=== PATIENT | female | born 1945 | race African-American/Black ===

== ENCOUNTER 2016-08-11 07:09 | Inpatient (IN) | payer MEDICARE, OTHER ==
[2016-08-03 10:13] LABS: HEMATOCRIT 38.1 % (36.0-48.0); HEMOGLOBIN 12.6 g/dL (12.0-16.0)
[2016-08-03 11:20] LABS: CALCIUM, SERUM 9.4 MG/DL (8.5-10.4); CHLORIDE, SERUM 97 MMOL/L (96-112); CO2 (CARBON DIOXIDE) 33 MMOL/L (24-34); SODIUM, SERUM 140 MMOL/L (135-148)
[2016-08-03 11:25] LABS: BUN (BLOOD UREA NITROGEN) 25 MG/DL (6-23); CREATININE 1.57 MG/DL (0.55-1.02); GFR AFRICAN AMERICAN 39 ML/MIN (>=60); GFR NON AFRICAN AMERICAN 33 ML/MIN (>=60); GLUCOSE, SERUM 103 MG/DL (60-99)
--- NOTE | ~2016-08-11 | OP ---
Record Of Operation [facility] [address] [place]. [address] NAME: LUCIA PERRY : 49 STATUS : DIS IN PAT#: [id number] AGE: 71 ADM/REG DATE : 08/11/16 MR#: [id number] REPORT SERV DATE: 08/16/16 DICTATED BY: MARINA LORENZO II DATE: 08/16/16 REPORT STATUS : Draft TRANSCRIBED BY: MODL DATE: 08/16/16 DATE OF PROCEDURE: 08/11/2016 PREOPERATIVE DIAGNOSES: 1. Severe spinal stenosis L3-4, L4-5 with associated spondylolisthesis. 2. Neurogenic claudication with radicular component. 3. Lumbar instability. 4. Stenosis, multilevel. POSTOPERATIVE DIAGNOSES: 1. Severe spinal stenosis L3-4, L4-5 with associated spondylolisthesis. 2. Neurogenic claudication with radicular component. 3. Lumbar instability. 4. L4-L5 autofusion. PROCEDURE: 1. Lumbar laminectomy and facetectomy for decompression of the L2, L3, and L4 nerve roots. 2. Posterolateral arthrodesis L2-3, L3-4. 3. Posterior segmental instrumentation, L2-3, L3-4. 4. Use of local autograft, allograft substitute, and bone morphogenic protein. 5. Use of the microscope and stereotactic spinal imaging. SURGEON: Marina Lorenzo M.D. FLUIDS: 2 L Lactated Ringer's. ESTIMATED BLOOD LOSS: 150 mL. DRAINS: None. COMPLICATIONS: None. ANTIBIOTIC: Preoperatively. IMPLANT: Alphatec. PREOPERATIVE HISTORY: This is a very friendly 71-year-old female, who I have known for many years. She unfortunately has re-presented with a severe worsening of her lumbar symptoms with severe radiation into the buttocks and legs. We discussed the pros and cons of surgery. We discussed the fact that she was at increased risk for infection or wound complications given her obesity. We discussed the other risks, which include, but are not limited to, CSF leak, footdrop, adjacent segment degeneration, hardware failure, and a small chance of heart attack, stroke, or . DESCRIPTION OF PROCEDURE: After informed consent was obtained, the patient was brought to the operating room at her request and general anesthesia achieved. She was placed in the Record Of Operation [facility] [address] [place]. [address] NAME: LUCIA PERRY : 47 STATUS : DIS IN PAT#: [id number] AGE: 71 ADM/REG DATE : 08/11/16 MR#: [id number] REPORT SERV DATE: 08/16/16 DICTATED BY: MARINA LORENZO II DATE: 08/16/16 REPORT STATUS : Draft TRANSCRIBED BY: MODWicho DATE: 08/16/16 prone position. The back was prepped and draped in a sterile fashion. The stereotactic spinal pin was placed into the iliac crest followed by completion of the intraoperative CT scan. The stereotactic guidance was then used throughout the remainder of the case. Next, the incision was made and the minimally invasive approach performed. We then placed the quadrant retractor into the operative level of L2-3 and L3-4. Interestingly, the L4-5 level appeared to be well fused at the facet level and autofusion. I then examined this under microscopic visualization, and did not identify any obvious macro-motion at the facet level. At this point, the high-speed bur was then used to thin the lamina and the spinal laminar junction. The curved curettes were used to detach the ligamentum flavum followed by decompression of the central canal. The L3-L4 level was found to have severe stenosis. We then identified and decompressed both the L3 and L4 nerve roots. Both exhibited severe compression. At this point, a complete facetectomies again had been performed to allow adequate decompression of the L3 and L4 nerve roots. Next, we worked up the L2-3 level where upon the similar procedure was performed with facetectomies. The L2 and L3 nerve roots again were now found to be well decompressed following aggressive facetectomies. The area was now irrigated and hemostasis confirmed from the epidural space. There was still however some cancellous bone bleeding from the facetectomies. At this point, we then placed adequate pedicular fixation bilaterally. A repeat CT scan confirmed acceptable placement of the implants. The rods were then well assembled and final tightening performed. Next, the decortication was performed of the transverse processes of L2, L3, and L4. The local autograft, allograft substitute, and bone morphogenic protein were then placed along the decorticated surfaces. A deep drain was placed followed by standard closure and dressing application. Overall please note, the surgery was significantly difficult because of the patient's size and body habitus. No we had to use the extra-long custom retractor blades and overall the surgery took a significantly longer amount of time than normal. Positioning also took a significant increased amount of time because again of the patient's size and habitus. JEWELL/TYLOR Marina Lorenzo II, M.D. / [id number] CC: Record Of Operation [address] [address] NAME: LUCIA PERRY : 49 STATUS : DIS IN PAT#: [id number] AGE: 71 ADM/REG DATE : 08/11/16 MR#: [id number] REPORT SERV DATE: 08/16/16 DICTATED BY: MARINA LORENZO II DATE: 08/16/16 REPORT STATUS : Draft TRANSCRIBED BY: TYLOR DATE: 08/16/16 Marina Lorenzo II, M.D.
--- NOTE | ~2016-08-11 | DS ---
Discharge Summary [facility] [address] [facility] [place]. [address] NAME: LUCIA PERRY : 49 STATUS : DIS IN PAT#: [id number] AGE: 71 ADM/REG DATE : 08/11/16 MR#: [id number] REPORT SERV DATE: 08/21/16 DICTATED BY: MARINA LORENZO II DATE: 08/21/16 REPORT STATUS : Draft TRANSCRIBED BY: TYLOR DATE: 08/21/16 Data Collection from hospitalization DISCHARGE DIAGNOSES: 1. Severe spinal stenosis, L3-4, L4-5 with associated spondylolisthesis. 2. Neurogenic claudication with radicular component. 3. Lumbar instability. 4. L4-L5 autofusion. 5. Hypertension. 6. Obesity. 7. Osteoarthritis. 8. Rheumatoid arthritis. 9. Glaucoma. 10.Blindness. CONSULTATIONS: None. PROCEDURES PERFORMED: Lumbar laminectomy and facetectomy for decompression of the L2, L3, and L4 nerve roots; posterolateral arthrodesis L2-3, L3-4; posterior segmental instrumentation L2-3, L3-4; use of local autograft allograft substitute and bone morphogenic protein; use of microscope and stereotactic spinal imaging, 08/11/2016. PATHOLOGY: Bone and soft tissue, lumbar spine-fragments of bone and fibrocartilage. No significant microscopic abnormality. DISCHARGE MEDICATIONS: Lipitor 20 mg at bedtime, Valium 2-4 mg every six hours as needed, Neurontin 100 mg every day at bedtime, Hyzaar 1 tablet every morning, MS Contin 15 mg every 12 hours as needed, Roxicodone 5-10 mg every four hours as needed, Ultram 50 mg three times a day. CONDITION ON DISCHARGE: Stable. DISPOSITION: The patient was discharged home on a regular diet with activities as instructed. She would follow up with me on 09/02/2016. HOSPITAL COURSE: This is a 71-year-old female who had complained of lumbar spine related symptoms. The symptoms were located in the lower back with radiation into the bilateral lower extremities with associated numbness, tingling, and weakness. The patient has multilevel stenosis with lumbar instability. She has neurogenic claudication with radicular component and severe spinal stenosis L3-4 and L4-5 with associated spondylolisthesis. Treatment options were discussed and it was elected to proceed with surgical intervention. She was admitted to the hospital at this time for further evaluation and treatment. Upon admission, she was taken to the operating room where she underwent the above-mentioned procedure. She tolerated this well and there were no complications. On postop day #1, she remained stable. She was alert and cooperative. She had no focal deficits. Over the next couple of days, she continued to progress. Discharge planning was performed. She was up sitting in a bedside chair. She was evaluated by Physical Therapy. She met all of her Discharge Summary [address] [address] NAME: LUCIA PERRY : 49 STATUS : DIS IN PAT#: [id number] AGE: 71 ADM/REG DATE : 08/11/16 MR#: [id number] REPORT SERV DATE: 08/21/16 DICTATED BY: MARINA LORENZO II DATE: 08/21/16 REPORT STATUS : Draft TRANSCRIBED BY: TYLOR DATE: 08/21/16 physical therapy goals. On 08/15/2016, she continued to do well. Postoperatively, she did complain of the expected back pain. Discharge instructions were given. Due to her improved and stable condition, she was discharged home with the above-stated instructions. Information collected by: Cassie Carbajal I submit the above information as my discharge summary. TAYLOR/TYLOR Marina Lorenzo II, M.D. / [id number] CC: Cammy Darling II, II
[~2016-08-11 07:09] MED LIST: AZOR1 TAB PO; HYZAAR 100/25 T1 TAB PO; LIPITOR20 PO; LORTAB 5 PO; METHOC750B PO; NEUR100 PO; ULTRACET PO; ULTRAM50 PO
[2016-08-11 10:05] LABS: CALCIUM, SERUM 8.5 MG/DL (8.5-10.4); CHLORIDE, SERUM 102 MMOL/L (96-112); CO2 (CARBON DIOXIDE) 30 MMOL/L (24-34); CREATININE 1.16 MG/DL (0.55-1.02); GFR AFRICAN AMERICAN 56 ML/MIN (>=60); GFR NON AFRICAN AMERICAN 48 ML/MIN (>=60); GLUCOSE, SERUM 109 MG/DL (60-99); SODIUM, SERUM 144 MMOL/L (135-148)
[2016-08-11 10:06] LABS: BUN (BLOOD UREA NITROGEN) 13 MG/DL (6-23)
[2016-08-15] MEDS ORDERED: MSCONT15 PO (09:55)
[2016-08-15] MEDS ORDERED: OXYCOD PO (09:55)
[2016-08-15] MEDS ORDERED: V2 PO (09:56)
== END 2016-08-15 14:47 | disposition home or self-care (01) | DRG 460 ==
LOC: SDC/OF 07:09 → PACU 15:21 → 3SO 17:12
PROVIDERS: Orthopaedic Surgery
PROC: 0SG1071 Fusion of 2 or more Lumbar Vertebral Joints with Autologous Tissue Substitute, Posterior Approach, Posterior Column, Open Approach (ICD-10-PCS; principal; 2016-08-11 11:15)
PROC: 4A11X4G Monitoring of Peripheral Nervous Electrical Activity, Intraoperative, External Approach (ICD-10-PCS; 2016-08-11 11:15)
DX: M51.16 Intervertebral disc disorders with radiculopathy, lumbar region (principal); I10 Essential (primary) hypertension; E66.9 Obesity, unspecified; Z68.38 Body mass index [BMI] 38.0-38.9, adult
CPT/HCPCS: 80048; 82962; 85014; 85018; 87641; 88304; 88311; 93005; 97116-GP; 97161-GP; A9270-GY; C1713; C1769; J1170; J1580; J1644; J2250; J2270; J2405; J2710; J3010; J3370